=== PATIENT | male | born 1955 | race Caucasian/White ===

== ENCOUNTER 2018-12-02 07:07 | Emergency (ER) | payer MEDICARE ==
[2018-12-02] MEDS ORDERED: PERCOCET TABLET 5/325MG PO STA (07:54)
[2018-12-02] MEDS ORDERED: PERCOCET TABLET 5/325MG ONE (08:01)
--- NOTE | 2018-12-02 08:06 | ERPHSYRPT ---
- History of Present Illness Source: patient Exam Limitations: no limitations Patient Subjective Stated Complaint: STATES FELL THREE WEEKS AGO AND INJURED LOWER BACK. THREE DAYS AGO TWISTED LOWER BACK WHILE REACHING FOR HIS COMPUTER BAG. Triage Nursing Assessment: TO ROOM PER EMS COT. SKIN W/D, COLOR NORMAL, RESP EASY. TENDER IN LOWER BACK. CAPONE WITHOUT DIFFICULTY. Physician History: Pt is a 63 y/o male that presented to the ED with complains of back pain. Pt states, fell out of bed a few weeks ago, and had cracked ribs on the L. Today he was in bed and was trying to reach his laptop, and turned and reached, and suddenly he felt severe pain in the lumbar spine, worse mid back. No F/C/S. No SOB or cough. No dysuria, frequency and urgency. No change in sensation. Pt did not take any other meds, and called the ambulance. Timing/Duration: today Method of Injury: twisted Quality: sharp, stabbing Back Pain Location: lumbar spine Severity of Pain-Max: moderate Severity of Pain-Current: moderate Modifying Factors: Improves With: immobilization, pain medication Associated Symptoms: denies symptoms Previous symptoms: no prior history Allergies/Adverse Reactions: prednisone Adverse Reaction (Verified 12/02/18 07:14) Home Medications: ALPRAZolam [Xanax 0.5 mg] 0.5 mg PO TID 11/06/14 [History] Hydrocodone/APAP 10/325 mg [[place] 10/325 MG Tablet] 1 tab PO QIDPRN PRN [History] Lisinopril/Hydrochlorothiazide [Lisinopril-Hctz 20-12.5 mg Tab] 1 each PO DAILY 11/06/14 [History] Metformin HCl 1000 mg [Glucophage 1000 MG] 1,000 mg PO BID 11/06/14 [History] Pravastatin Sodium 80 mg PO HS 11/06/14 [History] Hx Tetanus, Diphtheria Vaccination/Date Given: No Hx Influenza Vaccination/Date Given: Yes Hx Pneumococcal Vaccination/Date Given: Yes - Review of Systems Constitutional: No Fever, No Chills Eyes: No Symptoms Ears, Nose, & Throat: No Symptoms Respiratory: No Cough, No Dyspnea Cardiac: No Chest Pain, No Edema, No Syncope Abdominal/Gastrointestinal: No Abdominal Pain, No Nausea, No Vomiting, No Diarrhea Genitourinary Symptoms: No Dysuria Musculoskeletal: Back Pain (lumbar spine) Skin: No Rash Neurological: No Dizziness, No Focal Weakness, No Sensory Changes - Past Medical History Pertinent Past Medical History: Yes Neurological History: Peripheral Neuropathy Cardiac History: Coronary Artery Disease, High Cholesterol Respiratory History: CHF, COPD Endocrine Medical History: Diabetes Type II Musculoskeletal History: Osteoarthritis Psycho-Social History: Anxiety, Other Other Medical History: SX - JAI 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 HERNIA REPAIR, CYST REMOVAL BEHIND RIGHT KNEE. HEART STENT . HX - SPINAL STENOSIS (CURRENTLY NOT SEEING SPECIALIST). NO PREVIOUS PHYSICAL THERAPY EXCEPT BRIEF COURSE WHILE IN HOSPITAL FOR RIGHT HIP REPLACEMENT. - Past Surgical History Past Surgical History: Yes Cardiac: Cardiac Catheterization, Cardiac Stent Musculoskeletal: Orthopedic Surgery Other Surgical History: HIP SURGERY X2 - Social History Smoking Status: Current every day smoker Exposure to second hand smoke: No Drug Use: none Patient Lives Alone: No - Nursing Vital Signs Nursing Vital Signs: Initial Vital Signs Temperature 97.6 F 12/02/18 07:08 Pulse Rate 86 12/02/18 07:08 Respiratory Rate 16 12/02/18 07:08 Blood Pressure 128/75 12/02/18 07:08 O2 Sat by Pulse Oximetry 95 12/02/18 07:08 Pain Scale Pain Intensity 5 - Physical Exam General Appearance: no apparent distress, alert Eye Exam: PERRL/EOMI, eyes nml inspection Ears, Nose, Throat Exam: normal ENT inspection Neck Exam: normal inspection, non-tender, supple, full range of motion, No meningismus, No midline tenderness Respiratory Exam: normal breath sounds, lungs clear, No respiratory distress Cardiovascular Exam: regular rate/rhythm, normal heart sounds Gastrointestinal Exam: soft, No tenderness, No mass Back Exam: vertebral tenderness, point tenderness Extremity Exam: swelling (Pt is having his LEs wrapped by [facility], for edema.) Neurologic Exam: alert, oriented x 3, cooperative, certified prosthetist vice president II-XII nml as tested, normal mood/affect, nml station & gait, sensation nml, No motor deficits SpO2: 95 Ordered Tests: Active Orders 24 hr Category Date Time Status LUMBAR COMPLETE (MIN 4 VIEWS) Stat Exams 12/02/18 07:50 Taken Medication Summary Discontinued Medications Generic Name Dose Route Start Last Admin Trade Name Freq PRN Reason Stop Dose Admin Oxycodone/Acetaminophen 2 tab 12/02/18 07:54 12/02/18 08:02 Percocet Tablet 5/325mg PO 12/02/18 07:55 2 tab STAT STA Administration Oxycodone/Acetaminophen Confirm 12/02/18 08:01 Percocet Tablet 5/325mg Administered 12/02/18 08:02 Dose 2 tab .ROUTE .STK-MED ONE - Progress Progress: improved Progress Note: 12/02/18 08:06 Pt was seen and examined. Lumbar XRs were done, with no vertebral fracture. Percocet was ordered for the pain. When pt is improved, will D/C. 12/02/18 08:56 XR did not show any acute pathology or fracture. Pt is cleared for d/c, and he should f/u with his PCP. Discussed with : Carlos Enrique Will see patient in: office Counseled pt/family regarding: need for follow-up - Departure Departure Disposition: Home Clinical Impression: Back pain Condition: Stable Critical Care Time: No Referrals: RADHA LEON [Primary Care Provider] - Additional Instructions: F/U with PCP.
--- NOTE | 2018-12-02 09:11 | XRAY ---
Indication: Low back pain. Comparison: None 5 views of the lumbar spine demonstrates 5 lumbar vertebral segments in normal alignment with osteopenia, mild multilevel thoracolumbar degenerative spondylosis including L5-S1 disc space narrowing, scattered aortoiliac calcifications, and partially visualized bilateral hip arthroplasty. No acute findings.
[2018-12-02 09:12] VITALS: BP 133/66; PULSE 85; O2SAT 94
== END 2018-12-02 09:24 | disposition home or self-care (01) ==
LOC: ED 07:07
DX: M54.5 Low back pain (principal); X50.0XXA Overexertion from strenuous movement or load, initial encounter; G62.9 Polyneuropathy, unspecified; E11.9 Type 2 diabetes mellitus without complications; E78.00 Pure hypercholesterolemia, unspecified; I50.9 Heart failure, unspecified; J44.9 Chronic obstructive pulmonary disease, unspecified; I25.10 Atherosclerotic heart disease of native coronary artery without angina pectoris
CPT/HCPCS: 72110; 99283; A9270-GY

== ENCOUNTER 2019-05-10 12:04 | Inpatient (IN) | payer MEDICARE ==
--- NOTE | 2019-05-10 12:44 | ERPHSYRPT ---
- History of Present Illness Time Seen by Provider: 05/10/19 12:22 Source: patient, family Exam Limitations: no limitations Patient Subjective Stated Complaint: Pt states "I have not been feeling well. I am short of breath and I am coughing for the last 4 days." Triage Nursing Assessment: Pt presented alert and oriented X 3, skin pwd Pt able to speak in clear full sentences pt has intermittant productive cough. pt lung sounds slight wheezes noted bilat. Physician History: 63 yo with COPD/tobacco abuse, CAD s/p stenting, DM , HTN, chronic anemia, 4.5 cm aortic aneurysm presented with 4 days of worsening SOB with productive cough and chest tightness. more with activity. last night also had chest pain , took one nitro and is better but still have some heaviness. no fever but gen malaise and fatigue going on for the last few weeks, per is having a down hill course and dont know the cause for it. no abdominal pain , nausea or vomiting . Timing/Duration: day(s) (4) Severity of Dyspnea-Max: moderate Severity of Dyspnea-Current: moderate Modifying Factors: Improves With: coughing, exertion Associated Symptoms: chest pain/discomfort, chills, tightness Allergies/Adverse Reactions: prednisone Adverse Reaction (Verified 12/02/18 07:14) Home Medications: ALPRAZolam [Xanax 0.5 mg] 0.5 mg PO TID 11/06/14 [History] Lisinopril/Hydrochlorothiazide [Lisinopril-Hctz 20-12.5 mg Tab] 1 each PO DAILY 11/06/14 [History] Metformin HCl 1000 mg [Glucophage 1000 MG] 1,000 mg PO BID 11/06/14 [History] Pravastatin Sodium 80 mg PO HS 11/06/14 [History] Cyclobenzaprine HCl 10 mg [Cyclobenzaprine 10 MG] 10 mg PO TIDPRN [History] Furosemide 40 mg PO DAILY 12/02/18 [History] Gabapentin 300 mg PO HS 12/02/18 [History] Glyburide Micronized 3 mg [Glynase 3 MG] 3 mg PO BID 12/02/18 [History] Metoprolol Tartrate 50 mg PO BID 12/02/18 [History] Spironolactone 25 mg PO DAILY 12/02/18 [History] Tramadol HCl 50 mg [Ultram 50 mg] 50 mg PO DAILY 05/10/19 [History] Hx Tetanus, Diphtheria Vaccination/Date Given: No Hx Influenza Vaccination/Date Given: Yes Hx Pneumococcal Vaccination/Date Given: Yes Immunizations Up to Date: Yes - Review of Systems Constitutional: Fatigue, Malaise, Weakness Ears, Nose, & Throat: Throat Pain, Throat Swelling Respiratory: Cough, Dyspnea, Dyspnea on Exertion (MOYA), Wheezing Cardiac: Chest Pain Abdominal/Gastrointestinal: No Symptoms Genitourinary Symptoms: No Symptoms Musculoskeletal: Myalgias Skin: No Symptoms Neurological: No Symptoms Psychological: No Symptoms Hematologic/Lymphatic: Anemia Immunological/Allergic: No Symptoms - Past Medical History Pertinent Past Medical History: Yes Neurological History: No Pertinent History Cardiac History: Coronary Artery Disease, Hypertension Respiratory History: COPD Endocrine Medical History: Diabetes Type II Musculoskeletal History: Osteoarthritis Psycho-Social History: Anxiety, Other Other Medical History: BILATERAL THAS SEVERAL YEARS AGO - Past Surgical History Past Surgical History: Yes Cardiac: Cardiac Catheterization, Cardiac Stent Musculoskeletal: Orthopedic Surgery Other Surgical History: HIP SURGERY X2 - Social History Smoking Status: Current every day smoker How long have you smoked: years Exposure to second hand smoke: Yes Drug Use: none Patient Lives Alone: No - Nursing Vital Signs Nursing Vital Signs: Initial Vital Signs Temperature 97.8 F 05/10/19 12:07 Pulse Rate 64 05/10/19 12:07 Respiratory Rate 20 05/10/19 12:07 Blood Pressure 140/60 05/10/19 12:07 O2 Sat by Pulse Oximetry 98 05/10/19 12:07 Pain Scale Pain Intensity 3 - Physical Exam General Appearance: no apparent distress Eye Exam: eyes nml inspection Ears, Nose, Throat Exam: hearing grossly normal, normal ENT inspection Neck Exam: normal inspection, non-tender, supple, full range of motion Respiratory Exam: normal breath sounds, wheezing Cardiovascular/Chest Exam: normal heart sounds, regular rate/rhythm Abdominal/Gastrointestinal Exam: soft, normal bowel sounds, No tenderness Extremity Exam: non-tender, normal range of motion Neurologic Exam: alert, oriented x 3, cooperative Skin Exam: normal color, warm SpO2 Interpretation: normal SpO2: 98 O2 Delivery: Room Air - Course Nursing assessment & vital signs reviewed: Yes Ordered Tests: Active Orders 24 hr Category Date Time Status CHEST 2 VIEWS (PA AND LAT) Stat Exams 05/10/19 13:48 Taken CBC W DIFF Stat Lab 05/10/19 14:20 Completed CMP Stat Lab 05/10/19 14:20 Completed NT PRO BNP Stat Lab 05/10/19 14:20 Completed TROPONIN Q3H Lab 05/10/19 14:20 Completed TROPONIN Q3H Lab 05/10/19 17:00 Ordered TROPONIN Q3H Lab 05/10/19 20:00 Ordered TROPONIN Q3H Lab 05/10/19 23:00 Ordered TROPONIN Q3H Lab 05/11/19 02:00 Ordered Peak Expiratory Flow Rate ONCE RT 05/10/19 13:07 Completed Respiratory Therapy Assessment DAILY RT 05/10/19 13:07 Completed Transfer Order Routine Transfer 05/10/19 Ordered Medication Summary Generic Name Dose Route Start Last Admin Trade Name Freq PRN Reason Stop Dose Admin Ceftriaxone Sodium/Dextrose 2 g in 50 mls @ 100 mls/hr 05/10/19 15:15 Rocephin 2 Gm-D5w 50ml Bag IV 05/10/19 15:44 STAT STA Azithromycin 500 mg in 250 mls @ 250 mls/hr 05/10/19 15:15 Zithromax 500 Mg/ 250 Ml Nacl Premix IV 05/10/19 16:14 STAT STA Discontinued Medications Generic Name Dose Route Start Last Admin Trade Name Freq PRN Reason Stop Dose Admin Albuterol/Ipratropium 3 ml 05/10/19 12:46 05/10/19 13:12 Duoneb 0.5-3 Mg/3 Ml Neb IH 05/10/19 12:47 3 ml STAT ONE Administration Albuterol/Ipratropium Confirm 05/10/19 12:55 Duoneb 0.5-3 Mg/3 Ml Neb Administered 05/10/19 12:56 Dose 3 ml IH .STK-MED ONE Lab/Rad Data: Laboratory Result Diagrams 05/10/19 14:20 05/10/19 14:20 Laboratory Results 05/10/19 05/10/19 05/10/19 Range/Units 14:20 14:20 14:20 WBC 5.2 (4.0-10.5) K/mm3 RBC 2.29 L (4.1-5.6) M/mm3 Hgb 7.4 L (12.5-18.0) gm/dl Hct 24.6 L (42-50) % MCV 107.4 H (78-100) fl MCH 32.3 H (26-32) pg MCHC 30.1 L (32-36) g/dl RDW 21.0 H (11.5-14.0) % Plt Count 84 L (150-450) K/mm3 MPV 12.1 H (6-9.5) fl Gran % 61.9 (36.0-66.0) % Eos # (Auto) 0.22 (0-0.5) Absolute Lymphs (auto) 1.03 (1.0-4.6) Absolute Monos (auto) 0.70 (0.0-1.3) Lymphocytes % 19.9 L (24.0-44.0) % Monocytes % 13.5 H (0.0-12.0) % Eosinophils % 4.3 (0.00-5.0) % Basophils % 0.4 (0.0-0.4) % Absolute Granulocytes 3.20 (1.4-6.9) Basophils # 0.02 (0-0.4) Sodium 140 (137-145) mmol/L Potassium 5.3 H (3.5-5.1) mmol/L Chloride 108 H (98-107) mmol/L Carbon Dioxide 27 (22-30) mmol/L Anion Gap 10.1 (5-15) MEQ/L BUN 21 H (9-20) mg/dL Creatinine 0.99 (0.66-1.25) mg/dL Estimated GFR > 60.0 ML/MIN Glucose 118 H (74-106) mg/dL Calcium 8.4 (8.4-10.2) mg/dL Total Bilirubin 1.50 H (0.2-1.3) mg/dL AST 67 H (17-59) U/L ALT 22 (0-50) U/L Alkaline Phosphatase 141 H (38-126) U/L Troponin I < 0.012 (0.000-0.034) ng/mL NT-Pro-B Natriuret Pep 2560 H (0-900) pg/mL Serum Total Protein 7.8 (6.3-8.2) g/dL Albumin 2.7 L (3.5-5.0) g/dL - Progress Progress: improved, re-examined Air Movement: fair Progress Note: d/w 05/10/19 15:25 Discussed with : Mario Will see patient in: hospital (observation) Counseled pt/family regarding: lab results, diagnosis, rad results, smoking cessation - Departure Departure Disposition: Observation Clinical Impression: General weakness Pneumonia Qualifiers: Pneumonia type: due to unspecified organism Laterality: bilateral Lung location : lower lobe of lung Qualified Code(s): J18.9 - Pneumonia, unspecified organism Anemia Qualifiers: Anemia type: unspecified type Qualified Code(s): D64.9 - Anemia, unspecified Condition: Stable Critical Care Time: No Referrals: RADHA LEON [Primary Care Provider] -
[2019-05-10] MEDS ORDERED: DUONEB 0.5-3 MG/3 ml Neb IH ONE ×2 (12:46→12:55)
[2019-05-10 14:29] LABS: BASOPHIL % 0.4 % (0.0-0.4); Basophil (Absolute #) 0.02 (0-0.4); Eosinophil % 4.3 % (0.00-5.0); Eosinophil (Absolute #) 0.22 (0-0.5); Hematocrit 24.6 % (42-50); Hemoglobin 7.4 gm/dl (12.5-18.0); Lymphocyte (Absolute #) 1.03 (1.0-4.6); Lymphocytes % 19.9 % (24.0-44.0); Mean Cell Volume 107.4 fl (78-100); Mean Corpuscular Hemoglobin 32.3 pg (26-32); Mean Corpuscular Hgb Concent. 30.1 g/dl (32-36); Mean Platelet Volume 12.1 fl (6-9.5); Monocytes % 13.5 % (0.0-12.0); Neutrophil % 61.9 % (36.0-66.0); Platelet Count 84 K/mm3 (150-450); Red Blood Count 2.29 M/mm3 (4.1-5.6); White Blood Count 5.2 K/mm3 (4.0-10.5)
[2019-05-10 14:46] LABS: ALBUMIN 2.7 g/dL (3.5-5.0); ALKALINE PHOSPHATASE 141 U/L (38-126); ANION GAP 10.1 MEQ/L (5-15); BLOOD UREA NITROGEN 21 mg/dL (9-20); CHLORIDE 108 mmol/L (98-107); Calcium 8.4 mg/dL (8.4-10.2); Carbon Dioxide 27 mmol/L (22-30); Creatinine 1 0.99 mg/dL (0.66-1.25); Glucose 118 mg/dL (74-106); NT PRO BNP 2560 pg/mL (0-900); Potassium 5.3 mmol/L (3.5-5.1); SGOT/AST 67 U/L (17-59); SGPT/ALT 22 U/L (0-50); SODIUM 140 mmol/L (137-145); Total Protein 7.8 g/dL (6.3-8.2)
[2019-05-10] MEDS ORDERED: ROCEPHIN 2 Gm-D5w 50ML BAG** 2 G/50 ML IVPB IV STA (15:15)
[2019-05-10] MEDS ORDERED: Zithromax 500 MG/ 250 ML NaCl Premix 500 MG/250 ML IVPB IV STA (15:15)
[2019-05-10] MEDS ORDERED: Zithromax 500 MG/ 250 ML NaCl Premix 500 MG/250 ML IVPB IV ONE (16:35)
[2019-05-10] MEDS ORDERED: ROCEPHIN 2 Gm-D5w 50ML BAG** 2 G/50 ML IVPB IV ONE (16:36)
[2019-05-10] MEDS ORDERED: TYLENOL 325 MG PO PRN (17:50)
[2019-05-10 18:11] LABS: Slide Review 1 YES
--- NOTE | 2019-05-10 19:14 | XRAY ---
Indication: Cough and short of breath. Comparison: November 27, 2007. PA/lateral chest demonstrates new bibasilar infiltrates/atelectasis/effusions. Heart is not enlarged. Bony thorax intact with degenerative changes and L1 kyphoplasty.
[2019-05-10 20:43] LABS: ANION GAP 10.9 MEQ/L (5-15); BLOOD UREA NITROGEN 19 mg/dL (9-20); CHLORIDE 108 mmol/L (98-107); Calcium 8.5 mg/dL (8.4-10.2); Carbon Dioxide 27 mmol/L (22-30); Creatinine 1 0.99 mg/dL (0.66-1.25); Glucose 82 mg/dL (74-106); Potassium 4.7 mmol/L (3.5-5.1); SODIUM 141 mmol/L (137-145)
[2019-05-10] MEDS ORDERED: Cyclobenzaprine 10 MG PO PRN (21:26)
[2019-05-10] MEDS: ZOCOR 20MG PO SCH (22:10)
[2019-05-10] MEDS: NEURONTIN 300 MG PO SCH (22:10)
[2019-05-10] MEDS: xanAX 0.5 MG PO SCH (22:10)
[2019-05-10] MEDS: Lopressor 50 MG PO SCH (22:10)
[2019-05-11 02:23] LABS: ALBUMIN 2.4 g/dL (3.5-5.0); ALKALINE PHOSPHATASE 132 U/L (38-126); ANION GAP 8.9 MEQ/L (5-15); BLOOD UREA NITROGEN 18 mg/dL (9-20); CHLORIDE 108 mmol/L (98-107); Calcium 8.4 mg/dL (8.4-10.2); Carbon Dioxide 27 mmol/L (22-30); Creatinine 1 0.89 mg/dL (0.66-1.25); Glucose 73 mg/dL (74-106); Potassium 4.6 mmol/L (3.5-5.1); SGOT/AST 59 U/L (17-59); SGPT/ALT 21 U/L (0-50); SODIUM 140 mmol/L (137-145); Total Protein 7.2 g/dL (6.3-8.2)
[2019-05-11 02:34] LABS: BASOPHIL % 0.2 % (0.0-0.4); Basophil (Absolute #) 0.01 (0-0.4); Eosinophil % 4.1 % (0.00-5.0); Eosinophil (Absolute #) 0.17 (0-0.5); Hematocrit 23.2 % (42-50); Lymphocyte (Absolute #) 1.39 (1.0-4.6); Lymphocytes % 33.5 % (24.0-44.0); Mean Cell Volume 107.4 fl (78-100); Mean Corpuscular Hemoglobin 32.4 pg (26-32); Mean Corpuscular Hgb Concent. 30.2 g/dl (32-36); Mean Platelet Volume 10.9 fl (6-9.5); Monocyte (Absolute #) 0.58 (0.0-1.3); Neutrophil % 48.2 % (36.0-66.0); Platelet Count 89 K/mm3 (150-450); Red Blood Count 2.16 M/mm3 (4.1-5.6); White Blood Count 4.2 K/mm3 (4.0-10.5)
[2019-05-11 07:00] LABS: Slide Review 1 YES
[2019-05-11] MEDS: DUONEB 0.5-3 MG/3 ml Neb IH SCH ×4 (07:19→19:45)
[2019-05-11] MEDS ORDERED: NON-FORMULARY ITEM (Metformin Hcl 1000 Mg [Glucophage 1000 Mg] 1,000 MG) PO SCH (08:00)
[2019-05-11] MEDS: Glucophage 500 MG PO SCH ×2 (08:11→17:03)
[2019-05-11] MEDS ORDERED: Sodium Chloride 0.9% 500 ML 500 ML IV SCH (09:30)
[2019-05-11] MEDS ORDERED: NON-FORMULARY ITEM (Lisinopril/Hydrochlorothiazide [Lisinopril-Hctz 20-12.5 Mg Tab] 1 EACH PO SCH (10:00)
[2019-05-11] MEDS: Glynase 3 MG PO SCH ×2 (10:06→20:10)
[2019-05-11] MEDS: hydroDIURIL 25 MG PO SCH (10:06)
[2019-05-11] MEDS: Lopressor 50 MG PO SCH ×2 (10:07→20:09)
[2019-05-11] MEDS: Lasix 40 MG PO SCH (10:07)
[2019-05-11] MEDS: Zestril 20 MG PO SCH (10:08)
[2019-05-11] MEDS: xanAX 0.5 MG PO SCH ×3 (10:08→20:09)
[2019-05-11] MEDS: ROCEPHIN 1 Gm-D5w 50 ml Bag** 1 G/50 ML IVPB IV SCH (10:08)
[2019-05-11 10:09] LABS: ABO TYPING A; Antibody Screen NEGATIVE (NEGATIVE); RH TYPING POSITIVE
[2019-05-11 10:13] LABS: CROSS MATCH (PRBC) COMPATIBLE (COMPATIBLE)
[2019-05-11] MEDS: Zithromax 500 MG/ 250 ML NaCl Premix 500 MG/250 ML IVPB IV SCH (11:02)
[2019-05-11 18:57] LABS: Hemoglobin 8.6 gm/dl (12.5-18.0)
[2019-05-11] MEDS: NEURONTIN 300 MG PO SCH (20:09)
[2019-05-11] MEDS: ZOCOR 20MG PO SCH (20:10)
[2019-05-12] MEDS: DUONEB 0.5-3 MG/3 ml Neb IH SCH ×4 (01:27→18:46)
[2019-05-12 04:55] LABS: Absolute Neutrophil Ct (ANC) 2.28 (1.4-6.9); BASOPHIL % 0.2 % (0.0-0.4); Basophil (Absolute #) 0.01 (0-0.4); Eosinophil % 2.6 % (0.00-5.0); Eosinophil (Absolute #) 0.11 (0-0.5); Hemoglobin 8.4 gm/dl (12.5-18.0); Lymphocytes % 28.3 % (24.0-44.0); Mean Cell Volume 103.1 fl (78-100); Mean Corpuscular Hemoglobin 32.1 pg (26-32); Mean Corpuscular Hgb Concent. 31.1 g/dl (32-36); Mean Platelet Volume 10.3 fl (6-9.5); Monocyte (Absolute #) 0.64 (0.0-1.3); Monocytes % 15.1 % (0.0-12.0); Neutrophil % 53.8 % (36.0-66.0); Platelet Count 84 K/mm3 (150-450); Red Blood Count 2.62 M/mm3 (4.1-5.6); Red Cell Distribution Width 20.4 % (11.5-14.0); White Blood Count 4.2 K/mm3 (4.0-10.5)
[2019-05-12 05:52] LABS: Slide Review 1 YES
[2019-05-12 05:55] LABS: ALBUMIN 2.5 g/dL (3.5-5.0); ALKALINE PHOSPHATASE 130 U/L (38-126); ANION GAP 7.6 MEQ/L (5-15); BLOOD UREA NITROGEN 15 mg/dL (9-20); CHLORIDE 109 mmol/L (98-107); Calcium 8.3 mg/dL (8.4-10.2); Carbon Dioxide 27 mmol/L (22-30); Creatinine 1 0.89 mg/dL (0.66-1.25); SGOT/AST 65 U/L (17-59); SGPT/ALT 22 U/L (0-50); SODIUM 140 mmol/L (137-145); Total Protein 7.4 g/dL (6.3-8.2)
[2019-05-12 06:05] LABS: Glucose 34 mg/dL (74-106)
[2019-05-12] MEDS ORDERED: D50W 50 ml Abboject IV ONE (06:08)
[2019-05-12] MEDS: Glucophage 500 MG PO SCH ×2 (07:48→16:38)
[2019-05-12] MEDS ORDERED: NovoLOG Insulin SQ PRN (08:02)
--- NOTE | 2019-05-12 08:24 | HP ---
CHIEF COMPLAINT: Shortness of breath. HISTORY OF PRESENT ILLNESS: The patient is a 63 year-old white male patient who is functionally much older than his stated age. He reports he had not been feeling well. He had been having a cough over the past four days, increasing weakness and shortness of breath. PAST MEDICAL HISTORY: The patient has past history of chronic obstructive pulmonary disease, coronary artery disease, diabetes mellitus type 2, hypertension and chronic anemia. He has a 4.5 cm abdominal aortic aneurysm. PAST SURGICAL HISTORY: Includes hip surgery x2. He has had cardiac catheterization with stents placed. HOME MEDICATIONS: Alprazolam 0.5 mg t.i.d., lisinopril/hydrochlorothiazide 20 - 12.5 daily, Metformin 1,000 mg t.i.d., Pravastatin 80 mg a day, Flexeril 10 mg t.i.d. PRN, Lasix 40 mg a day, gabapentin 300 mg at night, glyburide 3 mg b.i.d., metoprolol 50 mg b.i.d., Spironolactone 25 mg a day, tramadol 50 mg for pain. ALLERGIES: PREDNISONE. PHYSICAL EXAMINATION: The patient's vital signs on admission showed temperature 97.8F, pulse 64, respiratory rate 20 and blood pressure 140/60. O2 saturation 98% on supplemental oxygen. HEENT: Normocephalic, atraumatic. Pupils equal round reactive to light. He is wearing oxygen per nasal cannula. Oropharynx is dry. NECK: Supple. No lymphadenopathy, thyromegaly or JVD. CHEST: Revealed diminished air movement bilateral bases with few minimal wheezes. ABDOMEN: Soft, mildly distended. No palpable masses. EXTREMITIES: revealed chronic lymphedema in the lower extremities with rubor present in both legs but there is also bruising over the left great toe where he had turned under him when he stumbled the other day. NEUROLOGIC: The patient is alert and oriented x3. No focal deficits were noted. LAB DATA AND TESTS: Laboratory studies initially showed a white count of 5,200, hemoglobin 7.4, PLT count 84,000. There appeared to be 61.9% granulocytes. His glucose is 118, BUN 21, creatinine 0.99. Potassium was slightly elevated at 5.3. Sodium was normal. His albumin was low at 2.7. Bilirubin 1.50. ProBNP was 2,560. He had a troponin less than 0.012. The patient's chest x-ray showed bilateral basilar infiltrates or atelectasis with mild effusions. His EKG showed sinus rhythm with no acute changes noted. ASSESSMENT: A patient with: 1) New pneumonia. He has been admitted to the hospital on Rocephin and Zithromax. He has chronic anemia. He will be transfused 2 units of packed red blood cells and rechecked. His platelets are chronically low. The patient has not been having any bleeding. 2) Diabetes mellitus. Continue his home medications. We will place him on sliding scale coverage as well. 3) Weakness. The patient's weakness will possibly require rehab at this time. We will have OT/PT evaluation for possible rehab admission after acute care hospitalization.
[2019-05-12] MEDS ORDERED: Sodium Chloride 0.9% 500 ML 500 ML IV SCH (09:45)
[2019-05-12 09:47] LABS: CROSS MATCH (PRBC) COMPATIBLE (COMPATIBLE)
[2019-05-12] MEDS: hydroDIURIL 25 MG PO SCH (09:51)
[2019-05-12] MEDS: Lopressor 50 MG PO SCH ×2 (09:52→21:42)
[2019-05-12] MEDS: Lasix 40 MG PO SCH (09:52)
[2019-05-12] MEDS: xanAX 0.5 MG PO SCH ×3 (09:53→21:42)
[2019-05-12] MEDS: ROCEPHIN 1 Gm-D5w 50 ml Bag** 1 G/50 ML IVPB IV SCH (09:53)
[2019-05-12] MEDS: Zestril 20 MG PO SCH (09:54)
[2019-05-12] MEDS: Zithromax 500 MG/ 250 ML NaCl Premix 500 MG/250 ML IVPB IV SCH (10:36)
[2019-05-12 17:59] LABS: Hematocrit 34.3 % (42-50)
[2019-05-12 18:00] LABS: Hemoglobin 10.8 gm/dl (12.5-18.0)
[2019-05-12] MEDS: ZOCOR 20MG PO SCH (21:42)
[2019-05-12] MEDS: NEURONTIN 300 MG PO SCH (21:43)
[2019-05-12] MEDS: ULTRAM 50 MG PO PRN (21:53)
[2019-05-13] MEDS: DUONEB 0.5-3 MG/3 ml Neb IH SCH ×4 (01:03→18:53)
[2019-05-13 06:26] LABS: Hematocrit 30.5 % (42-50); Hemoglobin 9.6 gm/dl (12.5-18.0); Mean Corpuscular Hemoglobin 31.5 pg (26-32); Mean Corpuscular Hgb Concent. 31.5 g/dl (32-36); Mean Platelet Volume 10.6 fl (6-9.5); Platelet Count 83 K/mm3 (150-450); Red Blood Count 3.05 M/mm3 (4.1-5.6); Red Cell Distribution Width 20.7 % (11.5-14.0); White Blood Count 4.6 K/mm3 (4.0-10.5)
[2019-05-13 06:41] LABS: ALBUMIN 2.5 g/dL (3.5-5.0); ALKALINE PHOSPHATASE 118 U/L (38-126); ANION GAP 9.8 MEQ/L (5-15); BLOOD UREA NITROGEN 15 mg/dL (9-20); CHLORIDE 106 mmol/L (98-107); Calcium 7.9 mg/dL (8.4-10.2); Carbon Dioxide 26 mmol/L (22-30); Creatinine 1 0.79 mg/dL (0.66-1.25); Glucose 99 mg/dL (74-106); Potassium 3.7 mmol/L (3.5-5.1); SGOT/AST 60 U/L (17-59); SGPT/ALT 21 U/L (0-50); SODIUM 138 mmol/L (137-145); Total Protein 7.4 g/dL (6.3-8.2)
[2019-05-13 06:58] LABS: Eosinophil 6 % (0.00-3.0); Lymphocytes 24 % (24-44); Monocyte 4 % (0.0-12.0); Neutrophils 66 % (36.-66.); Platelet Estimate NORMAL (NORMAL); Total Cells Counted 100
[2019-05-13 06:59] LABS: ANISOCYTOSIS 1+; Poikilocytosis 1+
[2019-05-13] MEDS: ULTRAM 50 MG PO PRN ×2 (06:59→19:01)
--- NOTE | 2019-05-13 08:14 | PCM.NOTE ---
Date and Time: 05/13/19812 Subjective Assessment: last 24 hours events noted - Review of Systems Constitutional: No Fever, No Chills Eyes: No Symptoms Ears, Nose, & Throat: No Symptoms Respiratory: No Cough, No Short Of Breath Cardiac: No Chest Pain, No Edema, No Syncope Abdominal/Gastrointestinal: No Abdominal Pain, No Nausea, No Vomiting, No Diarrhea Genitourinary Symptoms: No Dysuria Musculoskeletal: No Back Pain, No Neck Pain Skin: No Rash Neurological: No Dizziness, No Focal Weakness, No Sensory Changes Psychological: No Symptoms Endocrine: No Symptoms Hematologic/Lymphatic: No Symptoms Immunological/Allergic: No Symptoms Objective Exam General Appearance: no apparent distress, alert Neurologic Exam: alert, oriented x 3, cooperative, normal mood/affect, nml cerebellar function, sensation nml, No motor deficits Skin Exam: normal color, warm, dry Eye Exam: PERRL, EOMI, eyes nml inspection Ears, Nose, Throat Exam: normal ENT inspection, pharynx normal, moist mucous membranes Neck Exam: normal inspection, non-tender, supple, full range of motion Respiratory Exam: normal breath sounds, lungs clear, No respiratory distress Cardiovascular Exam: regular rate/rhythm, normal heart sounds Gastrointestinal/Abdomen Exam: soft, No tenderness, No mass Extremity Exam: normal inspection, normal range of motion Back Exam: normal inspection, normal range of motion, No CVA tenderness, No vertebral tenderness Male Genitalia Exam: deferred Rectal Exam: deferred OBJECTIVE DATA Vital Signs: Vital Signs - 24 hr Temp Pulse Resp BP Pulse Ox 05/13/19 06:56 78 16 92 L 05/13/19 04:26 98.3 F 77 18 114/55 93 L 05/13/19 01:06 77 20 93 L 05/13/19 00:05 98.3 F 73 20 107/66 96 05/12/19 20:12 98.1 F 69 18 138/64 97 05/12/19 18:51 69 18 97 05/12/19 16:00 98.0 F 71 18 141/62 95 05/12/19 14:14 70 16 95 05/12/19 11:31 97.8 F 70 16 116/58 96 05/12/19 09:21 74 18 94 L Pain Assessment - Last Documented Pain Intensity 0 Pain Scale Used FLACC Intake and Output: Intake & Output 12/22/19 05/11/19 05/12/19 05/13/19 11:59 11:59 11:59 11:59 Intake Total 266 8566 220 Output Total 2049 2674 2049 Balance -1330 -237 -1070 Weight 106.9 kg Lab Results: Accuchecks Date 05/12/19 Time 21:30 Accucheck Value: 100 Accucheck Value: 210 Accucheck Value: 189 Lab Results-Last 24 Hours 05/11/19 05/12/19 05/12/19 Range/Units 02:00 02:00 17:50 WBC (4.0-10.5) K/mm3 RBC (4.1-5.6) M/mm3 Hgb 10.8 L D (12.5-18.0) gm/dl Hct 34.3 L (42-50) % MCV (78-100) fl MCH (26-32) pg MCHC (32-36) g/dl RDW (11.5-14.0) % Plt Count (150-450) K/mm3 MPV (6-9.5) fl Segmented Neutrophils (36.-66.) % Lymphocytes (Manual) (24-44) % Monocytes (Manual) (0.0-12.0) % Eosinophils (Manual) (0.00-3.0) % Platelet Estimate (NORMAL) RBC Morphology Poikilocytosis Anisocytosis Sodium (137-145) mmol/L Potassium (3.5-5.1) mmol/L Chloride (98-107) mmol/L Carbon Dioxide (22-30) mmol/L Anion Gap (5-15) MEQ/L BUN (9-20) mg/dL Creatinine (0.66-1.25) mg/dL Estimated GFR ML/MIN Glucose (74-106) mg/dL Calcium (8.4-10.2) mg/dL Total Bilirubin (0.2-1.3) mg/dL AST (17-59) U/L ALT (0-50) U/L Alkaline Phosphatase (38-126) U/L Serum Total Protein (6.3-8.2) g/dL Albumin (3.5-5.0) g/dL Crossmatch COMPATIBLE COMPATIBLE (COMPATIBLE) 05/13/19 05/13/19 Range/Units 06:05 06:05 WBC 4.6 (4.0-10.5) K/mm3 RBC 3.05 L (4.1-5.6) M/mm3 Hgb 9.6 L (12.5-18.0) gm/dl Hct 30.5 L (42-50) % MCV 100.0 (78-100) fl MCH 31.5 (26-32) pg MCHC 31.5 L (32-36) g/dl RDW 20.7 H (11.5-14.0) % Plt Count 83 L (150-450) K/mm3 MPV 10.6 H (6-9.5) fl Segmented Neutrophils 66 (36.-66.) % Lymphocytes (Manual) 24 (24-44) % Monocytes (Manual) 4 (0.0-12.0) % Eosinophils (Manual) 6 H (0.00-3.0) % Platelet Estimate NORMAL (NORMAL) RBC Morphology ABNORMAL Poikilocytosis 1+ Anisocytosis 1+ Sodium 138 (137-145) mmol/L Potassium 3.7 (3.5-5.1) mmol/L Chloride 106 (98-107) mmol/L Carbon Dioxide 26 (22-30) mmol/L Anion Gap 9.8 (5-15) MEQ/L BUN 15 (9-20) mg/dL Creatinine 0.79 (0.66-1.25) mg/dL Estimated GFR > 60.0 ML/MIN Glucose 99 (74-106) mg/dL Calcium 7.9 L (8.4-10.2) mg/dL Total Bilirubin 1.80 H (0.2-1.3) mg/dL AST 60 H (17-59) U/L ALT 21 (0-50) U/L Alkaline Phosphatase 118 (38-126) U/L Serum Total Protein 7.4 (6.3-8.2) g/dL Albumin 2.5 L (3.5-5.0) g/dL Crossmatch (COMPATIBLE) Assessment/Plan (1) General weakness Current Visit: Yes Status: Acute Code(s): R53.1 - WEAKNESS (2) Pneumonia Current Visit: Yes Status: Acute Qualifiers: Pneumonia type: due to unspecified organism Laterality: bilateral Lung location: lower lobe of lung Qualified Code(s): J18.9 - Pneumonia, unspecified organism Code(s): J18.9 - PNEUMONIA, UNSPECIFIED ORGANISM
[2019-05-13] MEDS: Glucophage 500 MG PO SCH ×2 (08:27→17:01)
[2019-05-13] MEDS: ROCEPHIN 1 Gm-D5w 50 ml Bag** 1 G/50 ML IVPB IV SCH (09:33)
[2019-05-13] MEDS: hydroDIURIL 25 MG PO SCH (09:39)
[2019-05-13] MEDS: xanAX 0.5 MG PO SCH ×3 (09:40→21:18)
[2019-05-13] MEDS: Lasix 40 MG PO SCH (09:40)
[2019-05-13] MEDS: Zestril 20 MG PO SCH (09:40)
[2019-05-13] MEDS: Zithromax 500 MG/ 250 ML NaCl Premix 500 MG/250 ML IVPB IV SCH (09:41)
[2019-05-13] MEDS: Lopressor 50 MG PO SCH ×2 (09:41→21:18)
[2019-05-13] MEDS: NEURONTIN 300 MG PO SCH (21:18)
[2019-05-13] MEDS: ZOCOR 20MG PO SCH (21:18)
[2019-05-14] MEDS: DUONEB 0.5-3 MG/3 ml Neb IH SCH ×3 (01:07→12:38)
[2019-05-14 07:29] VITALS: O2SAT 95
[2019-05-14] MEDS: Glucophage 500 MG PO SCH (09:33)
[2019-05-14] MEDS: ROCEPHIN 1 Gm-D5w 50 ml Bag** 1 G/50 ML IVPB IV SCH (09:45)
[2019-05-14] MEDS: hydroDIURIL 25 MG PO SCH (09:45)
[2019-05-14] MEDS: xanAX 0.5 MG PO SCH (09:47)
[2019-05-14] MEDS: Lopressor 50 MG PO SCH (09:47)
[2019-05-14] MEDS: Lasix 40 MG PO SCH (09:48)
[2019-05-14] MEDS: Zestril 20 MG PO SCH (09:48)
[2019-05-14] MEDS: Zithromax 500 MG/ 250 ML NaCl Premix 500 MG/250 ML IVPB IV SCH (10:30)
[2019-05-14 11:39] VITALS: BP 113/63
[2019-05-14 12:42] VITALS: PULSE 75
== END 2019-05-14 14:25 | DRG 195 ==
LOC: ED 12:04 → MED SURG 17:10 → OBSVTOIN 05-11 02:09
PROVIDERS: ADMIT Family Medicine; ATTEND Family Medicine
DX: J18.9 Pneumonia, unspecified organism (principal); J44.9 Chronic obstructive pulmonary disease, unspecified; D63.8 Anemia in other chronic diseases classified elsewhere; E11.9 Type 2 diabetes mellitus without complications; R53.1 Weakness; I10 Essential (primary) hypertension; I25.10 Atherosclerotic heart disease of native coronary artery without angina pectoris; I71.4 Abdominal aortic aneurysm, without rupture; Z79.899 Other long term (current) drug therapy
CPT/HCPCS: 36415; 36430; 71046; 80048; 80053; 82272; 82962; 83880; 84484; 85014; 85018; 85025; 86850; 86900; 86901; 86922; 93268; 94150; 94640; 94760; 96365; 96368; 97162; 97530; 99285; G0378; P9016; J0456; J0696; A9270-GY

== ENCOUNTER 2019-06-02 15:39 | Emergency (ER) | payer MEDICARE ==
--- NOTE | 2019-06-02 15:55 | ERPHSYRPT ---
- History of Present Illness Time Seen by Provider: 06/02/19 15:54 Source: patient, EMS Exam Limitations: clinical condition Patient Subjective Stated Complaint: Elevated ammonia levels, feverish Triage Nursing Assessment: Pt brought in by EMS from [facility], yellowish-orange skin color, denies pain, pulses normal, coarse lung sounds on the right, left lungs clear Physician History: 63 y/o alcoholic white male with h/o dm, htn and mild liver failure resident of [facility] and pt of Dr. Og presents because of concerns of elevated ammonia level, jaundice, and increased confusion. pt states his last consumption of ETOH was 6 months ago. pt states he did not take any lactulose in past. Timing/Duration: today Severity: mild Associated Symptoms: denies symptoms, No nausea, No vomiting, No abdominal pain , No shortness of breath, No chest pain Allergies/Adverse Reactions: prednisone Adverse Reaction (Verified 06/02/19 15:54) Home Medications: ALPRAZolam [Xanax 0.5 mg] 0.5 mg PO TID 11/06/14 [History] Lisinopril/Hydrochlorothiazide [Lisinopril-Hctz 20-12.5 mg Tab] 1 each PO DAILY 11/06/14 [History] Metformin HCl 1000 mg [Glucophage 1000 MG] 1,000 mg PO BID 11/06/14 [History] Pravastatin Sodium 80 mg PO HS 11/06/14 [History] Cyclobenzaprine HCl 10 mg [Cyclobenzaprine 10 MG] 10 mg PO TIDPRN [History] Furosemide 40 mg PO DAILY 12/02/18 [History] Gabapentin 300 mg PO HS 12/02/18 [History] Metoprolol Tartrate 50 mg PO BID 12/02/18 [History] Tramadol HCl 50 mg [Ultram 50 mg] 50 mg PO DAILY 05/10/19 [History] Hx Tetanus, Diphtheria Vaccination/Date Given: No Hx Influenza Vaccination/Date Given: Yes Hx Pneumococcal Vaccination/Date Given: Yes - Review of Systems Constitutional: Weakness Eyes: No Symptoms Ears, Nose, & Throat: No Symptoms Respiratory: No Symptoms Cardiac: No Symptoms Abdominal/Gastrointestinal: No Symptoms, No Abdominal Pain, No Nausea, No Vomiting, No Diarrhea Genitourinary Symptoms: No Symptoms Musculoskeletal: No Symptoms Skin: No Symptoms Neurological: No Symptoms Psychological: No Symptoms Endocrine: No Symptoms Hematologic/Lymphatic: No Symptoms Immunological/Allergic: No Symptoms All Other Systems: Reviewed and Negative - Past Medical History Pertinent Past Medical History: Yes Neurological History: No Pertinent History ENT History: No Pertinent History Cardiac History: Aneurysm, Coronary Artery Disease, Hypertension Respiratory History: COPD, Pneumonia Endocrine Medical History: Diabetes Type II Musculoskeletal History: Osteoarthritis GI Medical History: No Pertinent History History: No Pertinent History Psycho-Social History: Anxiety, Other Male Reproductive Disorders: No Pertinent History Other Medical History: BILATERAL THAS SEVERAL YEARS AGO - Past Surgical History Past Surgical History: Yes Neuro Surgical History: No Pertinent History Cardiac: Cardiac Catheterization, Cardiac Stent Respiratory: No Pertinent History Gastrointestinal: No Pertinent History Genitourinary: No Pertinent History Musculoskeletal: Orthopedic Surgery Male Surgical History: No Pertinent History Other Surgical History: HIP SURGERY X2 - Social History Smoking Status: Former smoker How long have you smoked: years Exposure to second hand smoke: No Drug Use: none Patient Lives Alone: No - Nursing Vital Signs Nursing Vital Signs: Initial Vital Signs Temperature 98.0 F 06/02/19 15:53 Pulse Rate 79 06/02/19 15:53 Blood Pressure 112/65 06/02/19 15:53 O2 Sat by Pulse Oximetry 97 06/02/19 15:53 Pain Scale Pain Intensity 0 - Physical Exam General Appearance: no apparent distress, alert Eye Exam: PERRL/EOMI, eyes nml inspection Ears, Nose, Throat Exam: normal ENT inspection, moist mucous membranes Neck Exam: normal inspection, non-tender, supple, full range of motion Respiratory Exam: normal breath sounds, lungs clear, airway intact, No chest tenderness, No respiratory distress Cardiovascular Exam: regular rate/rhythm, normal heart sounds, normal peripheral pulses Gastrointestinal/Abdomen Exam: soft, normal bowel sounds, other (mild distension , ? mild ascites), No tenderness Rectal Exam: not done Back Exam: normal inspection, normal range of motion, No CVA tenderness, No vertebral tenderness Extremity Exam: normal inspection, normal range of motion, pelvis stable Neurologic Exam: alert, oriented x 3, cooperative, visual associate II-XII nml as tested Skin Exam: normal color, warm, dry, No jaundice Lymphatic Exam: No adenopathy SpO2 Interpretation: normal SpO2: 97 O2 Delivery: Room Air Ordered Tests: Active Orders 24 hr Category Date Time Status IV Insertion STAT Care 06/02/19 16:00 Active CBC W DIFF Stat Lab 06/02/19 16:24 Completed CMP Stat Lab 06/02/19 16:24 Completed Lactic Acid Stat Lab 06/02/19 16:25 Results Medication Summary Generic Name Dose Route Start Last Admin Trade Name Rocky PRN Reason Stop Dose Admin Sodium Chloride 500 mls @ 500 mls/hr 06/02/19 17:13 06/02/19 17:22 Sodium Chloride 0.9% 500 Ml IV 06/02/19 18:12 500 mls/hr .Q1H ONE Administration Discontinued Medications Generic Name Dose Route Start Last Admin Trade Name Rocky PRN Reason Stop Dose Admin Furosemide 20 mg 06/03/19 17:11 Lasix 20 Mg/2 Ml IV 06/03/19 17:12 STAT ONE Furosemide 20 mg 06/02/19 17:23 06/02/19 17:24 Lasix 40 Mg/4 Ml IV 06/02/19 17:24 20 mg STAT ONE Administration Furosemide Confirm 06/02/19 17:21 Lasix 40 Mg/4 Ml Administered 06/02/19 17:22 Dose 40 mg .ROUTE .STK-MED ONE Ceftriaxone Sodium/Dextrose 1 g in 50 mls @ 100 mls/hr 06/02/19 16:48 17:15 Rocephin 1 Gm-D5w 50 Ml Bag IV 06/02/19 17:17 100 mls/hr STAT STA 100 mls/hr Administration Ceftriaxone Sodium/Dextrose Confirm 06/02/19 17:02 Rocephin 1 Gm-D5w 50 Ml Bag Administered 06/02/19 17:03 Dose 1 g in 50 mls @ ud IV .STK-MED ONE Sodium Chloride Confirm 06/02/19 17:21 Sodium Chloride 0.9% 500 Ml Administered 06/02/19 17:22 Dose 500 mls @ ud IV .STK-MED ONE Lactulose 30 g 06/02/19 16:52 06/02/19 17:15 Enulose 10 Gm/15 Ml PO 06/02/19 16:53 30 g STAT ONE Administration Lab/Rad Data: Laboratory Result Diagrams 06/02/19 16:24 06/02/19 16:24 Laboratory Results 06/02/19 06/02/1920 Range/Units 16:25 16:24 16:24 WBC (4.0-10.5) K/mm3 RBC (4.1-5.6) M/mm3 Hgb (12.5-18.0) gm/dl Hct (42-50) % MCV (78-100) fl MCH (26-32) pg MCHC (32-36) g/dl RDW (11.5-14.0) % Plt Count (150-450) K/mm3 MPV (7.5-11.0) fl Gran % (36.0-66.0) % Eos # (Auto) (0-0.5) Absolute Lymphs (auto) (1.0-4.6) Absolute Monos (auto) (0.0-1.3) Lymphocytes % (24.0-44.0) % Monocytes % (0.0-12.0) % Eosinophils % (0.00-5.0) % Basophils % (0.0-0.4) % Absolute Granulocytes (1.4-6.9) Basophils # (0-0.4) Sodium 143 (137-145) mmol/L Potassium 3.6 (3.5-5.1) mmol/L Chloride 108 H (98-107) mmol/L Carbon Dioxide 24 (22-30) mmol/L Anion Gap 14.7 (5-15) MEQ/L BUN 21 H (9-20) mg/dL Creatinine 0.81 (0.66-1.25) mg/dL Estimated GFR > 60.0 ML/MIN Glucose 112 H (74-106) mg/dL Lactic Acid 5.5 H (0.4-2.0) Calcium 8.0 L (8.4-10.2) mg/dL Total Bilirubin 2.00 H (0.2-1.3) mg/dL AST 86 H (17-59) U/L ALT 26 (0-50) U/L Alkaline Phosphatase 143 H (38-126) U/L Ammonia 103 H (9-30) umol/L Serum Total Protein 7.5 (6.3-8.2) g/dL Albumin 2.5 L (3.5-5.0) g/dL 06/02/19 Range/Units 16:24 WBC 4.0 (4.0-10.5) K/mm3 RBC 2.62 L (4.1-5.6) M/mm3 Hgb 8.6 L (12.5-18.0) gm/dl Hct 27.2 L (42-50) % MCV 103.8 H (78-100) fl MCH 32.8 H (26-32) pg MCHC 31.6 L (32-36) g/dl RDW 20.6 H (11.5-14.0) % Plt Count 100 L (150-450) K/mm3 MPV 10.2 (7.5-11.0) fl Gran % 53.2 (36.0-66.0) % Eos # (Auto) 0.18 (0-0.5) Absolute Lymphs (auto) 1.11 (1.0-4.6) Absolute Monos (auto) 0.56 (0.0-1.3) Lymphocytes % 27.8 (24.0-44.0) % Monocytes % 14.0 H (0.0-12.0) % Eosinophils % 4.5 (0.00-5.0) % Basophils % 0.5 (0.0-0.4) % Absolute Granulocytes 2.12 (1.4-6.9) Basophils # 0.02 (0-0.4) Sodium (137-145) mmol/L Potassium (3.5-5.1) mmol/L Chloride (98-107) mmol/L Carbon Dioxide (22-30) mmol/L Anion Gap (5-15) MEQ/L BUN (9-20) mg/dL Creatinine (0.66-1.25) mg/dL Estimated GFR ML/MIN Glucose (74-106) mg/dL Lactic Acid (0.4-2.0) Calcium (8.4-10.2) mg/dL Total Bilirubin (0.2-1.3) mg/dL AST (17-59) U/L ALT (0-50) U/L Alkaline Phosphatase (38-126) U/L Ammonia (9-30) umol/L Serum Total Protein (6.3-8.2) g/dL Albumin (3.5-5.0) g/dL - Progress Progress: improved Progress Note: 06/02/19 17:45 we were told pts pcp was dr. huff. spoke with dr. huff, pts pcp. pt ok to discharge back to [facility] and tx elevated ammonia with tid lactulose and uti with oral antibiotic. will give extra dose lasix in the morning of 06/03/2019. recheck labs in 24 hours. Discussed with .: Cong Counseled pt/family regarding: lab results, diagnosis, need for follow-up - Departure Departure Disposition: Extended Care Facility Clinical Impression: UTI (urinary tract infection), Serum ammonia increased Condition: Stable Critical Care Time: No Referrals: S[facility] [Primary Care Provider] -
[2019-06-02 16:31] LABS: Absolute Neutrophil Ct (ANC) 2.12 (1.4-6.9); BASOPHIL % 0.5 % (0.0-0.4); Basophil (Absolute #) 0.02 (0-0.4); Eosinophil % 4.5 % (0.00-5.0); Eosinophil (Absolute #) 0.18 (0-0.5); Hematocrit 27.2 % (42-50); Hemoglobin 8.6 gm/dl (12.5-18.0); Lymphocyte (Absolute #) 1.11 (1.0-4.6); Lymphocytes % 27.8 % (24.0-44.0); Mean Cell Volume 103.8 fl (78-100); Mean Corpuscular Hemoglobin 32.8 pg (26-32); Mean Corpuscular Hgb Concent. 31.6 g/dl (32-36); Mean Platelet Volume 10.2 fl (7.5-11.0); Monocyte (Absolute #) 0.56 (0.0-1.3); Neutrophil % 53.2 % (36.0-66.0); Platelet Count 100 K/mm3 (150-450); Red Blood Count 2.62 M/mm3 (4.1-5.6); Red Cell Distribution Width 20.6 % (11.5-14.0)
[2019-06-02 16:45] LABS: ALBUMIN 2.5 g/dL (3.5-5.0); ALKALINE PHOSPHATASE 143 U/L (38-126); ANION GAP 14.7 MEQ/L (5-15); BLOOD UREA NITROGEN 21 mg/dL (9-20); CHLORIDE 108 mmol/L (98-107); Carbon Dioxide 24 mmol/L (22-30); Creatinine 1 0.81 mg/dL (0.66-1.25); Glucose 112 mg/dL (74-106); Potassium 3.6 mmol/L (3.5-5.1); SGOT/AST 86 U/L (17-59); SGPT/ALT 26 U/L (0-50); SODIUM 143 mmol/L (137-145); Total Protein 7.5 g/dL (6.3-8.2)
[2019-06-02] MEDS ORDERED: ROCEPHIN 1 Gm-D5w 50 ml Bag** 1 G/50 ML IVPB IV STA (16:48)
[2019-06-02] MEDS ORDERED: Enulose 10 GM/15 ML PO ONE (16:52)
[2019-06-02 16:53] LABS: Lactic Acid 5.5 (0.4-2.0)
[2019-06-02] MEDS ORDERED: ROCEPHIN 1 Gm-D5w 50 ml Bag** 1 G/50 ML IVPB IV ONE (17:02)
[2019-06-02] MEDS ORDERED: Sodium Chloride 0.9% 500 ML 500 ML IV ONE ×4 (17:13→18:18)
[2019-06-02] MEDS ORDERED: Lasix 40 MG/4 ML ONE (17:21)
[2019-06-02] MEDS ORDERED: Lasix 40 MG/4 ML IV ONE (17:23)
[2019-06-02 19:05] LABS: Lactic Acid 5.3 (0.4-2.0)
[2019-06-02 20:19] VITALS: BP 128/77; PULSE 92; O2SAT 94
[2019-06-02 23:09] LABS: Slide Review 1 YES
[2019-06-03] MEDS ORDERED: Lasix 20 MG/2 ML IV ONE (17:11)
== END 2019-06-02 20:16 ==
LOC: ED 15:39
DX: N39.0 Urinary tract infection, site not specified (principal)
CPT/HCPCS: 36415; 80053; 82140; 82270; 83605; 85025; 96360; 96361; 96365; 96374; 96375; 99284; J0696; J1940; A9270-GY